=== PATIENT | female | born 1940 | race Caucasian/White ===

== ENCOUNTER 2017-05-01 07:37 | Day surgery (SDC) | payer MEDICARE, BC ==
[2017-05-01] MEDS ORDERED: MIDAZOLAM HCL 2MG/2ML VIAL IV ONE (14:00)
[2017-05-01] MEDS ORDERED: PROPOFOL 10 MG/ML VIAL IV ONE (14:00)
[2017-05-01] MEDS ORDERED: LIDOCAINE 2% MDV (20MG/ML) 20ML VIAL IV ONE (14:00)
--- NOTE | 2017-05-06 09:48 | Operative Note ---
DATE OF SURGERY: 05/01/2017 Surgeon: Odin Levy DO Referring physician: Jeannie BARRIOS PREOPERATIVE DIAGNOSIS: Family history of colon cancer in mother and personal history of colon polyps. POSTOPERATIVE DIAGNOSIS: Mild sigmoid diverticulosis. OPERATION: COLONOSCOPY PREPARATION QUALITY: Good. ESTIMATED BLOOD LOSS: None. SPECIMENS: None. PROCEDURE: After informed consent was obtained with the patient, she was placed in the left lateral decubitus position in the endoscopy suite, sedated and monitored by the Department of Anesthesia. Digital rectal examination was unremarkable. A well-lubricated PCF 180 colonoscope was inserted into the rectum and advanced to the cecum. The preparation quality was good. The ileocecal valve and appendicial orifice were identified. The cecal cap, ascending colon, transverse colon, descending colon were unremarkable. No polyps, mass, lesion, or inflammation were seen. In the sigmoid colon there were mild diverticular changes noted. No polyps were seen, no inflammation was noted. Forward and J-turn views of the rectum and anorectum were unrevealing. The endoscope was straightened, the rectal ampulla deflated. The endoscope was removed. RECOMMENDATIONS: The patient should follow a high fiber diet. I recommend a repeat colonoscopy in 5 years. As always, thank you for allowing me to participate in the care of your patient. CC: Jeannie Levy DO [facility]
== END 2017-05-01 10:10 | disposition home or self-care (01) ==
LOC: HOP 07:37
PROVIDERS: ATTEND Internal Medicine Gastroenterology
DX: Z12.11 Encounter for screening for malignant neoplasm of colon (principal); K57.30 Diverticulosis of large intestine without perforation or abscess without bleeding; I10 Essential (primary) hypertension
CPT/HCPCS: 00810; G0121